=== PATIENT | female | born 2005 | race Hispanic/Latino ===

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

== ENCOUNTER 2023-02-22 16:59 | Emergency (ER) | payer OTHER ==
[2023-02-22] MEDS ORDERED: Ibuprofen 800 MG TAB ONE (18:09)
[2023-02-22] MEDS ORDERED: Ondansetron ODT 4 MG TAB ONE (18:12)
== END 2023-02-22 19:15 | disposition home or self-care (01) ==
LOC: NAV ERS 16:59
DX: B34.9 Viral infection, unspecified (principal); Z20.822 Contact with and (suspected) exposure to COVID-19
CPT/HCPCS: 87635; 87804; 99283; Q0162

== ENCOUNTER 2023-03-02 12:11 | Emergency (ER) | payer OTHER ==
[2023-03-02] MEDS ORDERED: Tetracaine 0.5% PF 4 ML BOT ONE (12:37)
[2023-03-02] MEDS ORDERED: Fluorescein Opthalmic Strip ONE (12:37)
== END 2023-03-02 12:53 | disposition home or self-care (01) ==
LOC: NAV ERS 12:11
DX: H10.32 Unspecified acute conjunctivitis, left eye (principal)
CPT/HCPCS: 99283